=== PATIENT | female | born 1950 | race Caucasian/White ===

== ENCOUNTER 2024-06-12 23:10 | Observation (INO) | payer OTHER, SELFPAY ==
[2024-06-12] VITALS (10 sets, daily range): BP systolic 161–184; BP diastolic 76–96; PULSE 58; BMI 22.3
[2024-06-12 16:25] LABS: % Basophils 0.6 % (0-2); % Eosinophils 2.9 % (0-6); % Immature Granulocytes 0.5 % (0-0.5); % Lymphocytes 36.9 % (20.5-51.1); % Monocytes 5.3 % (1.7-9.3); % Neutrophils 53.8 % (42.2-75.2); Absolute Eosinophils 0.2 10^3/uL (0-0.7); Absolute Lymphocytes 2.4 10^3/uL (1.2-3.4); Absolute Monocytes 0.4 10^3/uL (0.1-0.6); Absolute Neutrophils 3.6 10^3/uL (1.4-6.5); Hematocrit 35.7 % (37.0-47.0); Hemoglobin 12.1 g/dL (12.0-16.0); Mean Corp Hgb Conc. 33.9 g/dL (33.0-37.0); Mean Corpuscular Volume 88.6 fL (81.0-99.0); Mean Platelet Volume 10.7 fL (7.4-10.4); Nucleated Red Blood Cells % 0 %; Platelet Count 192 10^3/uL (130-400); Red Blood Cell Count 4.03 10^6/uL (4.20-5.40); Red Cell Dist. Width 14.3 % (11.5-14.5); White Blood Cell Count 6.6 10^3/uL (4.8-10.8)
[2024-06-12 16:37] LABS: ALT (SGPT) 16 U/L (0-35); AST (SGOT) 24 U/L (14-36); Albumin 4.1 g/dl (3.5-5.0); Alkaline Phosphatase 57 U/L (38-126); Blood Urea Nitrogen 8 mg/dl (7-17); Calcium 8.9 mg/dl (8.4-10.2); Carbon Dioxide 28 mmol/L (22-30); Chloride 101 mmol/L (98-107); Glucose 102 mg/dl (70-99); Potassium 3.4 mmol/L (3.5-5.1); Sodium 140 mmol/L (135-145); Total Bilirubin 0.8 mg/dl (0.2-1.3); Total Protein 6.4 g/dl (6.3-8.2); eGFR > 60.00
[2024-06-12 16:49] LABS: Troponin I < 0.012 ng/ml
--- NOTE | 2024-06-12 22:17 | ED.GENMED ---
History of Present Illness
General
Chief Complaint: Dizziness
Source: patient
Exam Limitations: none
Time Seen by Provider: 06/12/24 19:37
History of Present Illness
History of Present Illness:
This is a 73 year old female that comes in with c/o dizziness. States that when she got up this morning she felt fine. Then she went back to bed and when she got up around 11am she got up and fell back down. State that she tried to get up again and
she took 3 steps and almost fell again as she grabbed onto something to prevent herself from falling. States that she was very dizzy. States that she felt a little better at this time but still was dizzy. Denies any fever, chills, chest pain, SOB,
abd pain, nausea, vomiting, diarrhea, headache, urinary burning.
Past History
Past History
ED Past Medical History: HTN, Hypercholesterolemia, Hypothyroidism and Other (Tumor of the Pituitary)
ED Past Surgical History: Appendectomy, Brain (pituitary tumor resection), Cholecystectomy, Gynecological (OOphorectomy), Tonsilectomy and Other (rhinoplasty, Cataracts)
Social History
Tobacco: Former smoker
Alcohol: Occasional ('bourbon and water every day')
Drug: None
Personal:
Living: alone
Review of Systems
Review of Systems
All Other Systems: ROS reviewed and negative except as documented in HPI and ROS
Constitutional: Reports no symptoms; Denies fever or chills
EENT: Reports no symptoms
Respiratory: Reports no symptoms; Denies cough or trouble breathing
Cardiac: Reports no symptoms; Denies chest pain
ABD/GI: Reports no symptoms; Denies abdominal pain, nausea, vomiting or diarrhea
: Reports no symptoms; Denies dysuria, frequency or urgency
Musculoskeletal: Reports no symptoms
Skin: Reports no symptoms
Neurological: Reports dizzy; Denies headache
Psychiatric: Reports no symptoms
Phy Exam
General Physical Exam
General Presentation: no apparent distress
General age: appears stated age
General Skin: warm and dry
General Habitus: elderly
General Mental: alert
General Hydration: appears well hydrated
ENT Exam
ENT Exam: TM's normal, pharynx normal and neck supple
Eye Exam
Eye Exam: EOMI
Cardiovascular Exam
Cardiovascular Exam: regular rate/rhythm, no edema, no murmur and normal peripheral pulses
Pulmonary Exam
Pulmonary Exam: lungs clear, no respiratory distress, no rales, chest non tender, no crackles, no rhonchi, no wheezing and no cough
Gastrointestinal Exam
Gastrointestinal Exam: normal bowel sounds, non tender, soft, no organomegaly, no pulsatile mass and non distended
NIH Stroke Score
Level of Consciousness: 0 - Alert
LOC questions: 0-Answers both correctly
LOC Commands: 0-Performs both correctly
Best Gaze: 0-Normal
Visual Mccabe: 0=Normal, no visual loss
Facial palsy: 0=Normal, symmetrical
Motor - Right Arm: 0=No drift 10 seconds
Motor - Left Arm: 0=No drift 10 seconds
Motor - Right Le-No drift 5 seconds
Motor - Left Le-No drift 5 seconds
Limb Ataxia: 0-Absent
Sensation: 0-Normal
Best Language: 0-No aphasia
Dysarthria: 0-Normal
Extinction and Inattention: 0-No abnormality
Total Score:: 0
Musculoskeletal Exam
Musculoskeletal Exam: full ROM, no edema and other (Hand grasp and push pulls equal)
Skin Exam
Skin Exam: normal color, warm/dry, no rash and no petechia
Psychiatric Exam
Psychiatric Exam: normal mood/affect
Course
Orders/Labs/Results
Orders:
Orders
06/12/24 Dinner
Regular
At Your Request: Full Participation
06/12/24 16:14
Electrocardiogram (*1) Urgent
Reason for Study: Vertigo / Dizzy
CT Head W/o Iv Contrast Urgent
Comment:
Reason For Exam: dizziness
EKG- Treatment ONCE
06/12/24 16:17
Complete Blood Count/With Diff Urgent
Comprehensive Metabolic Panel Urgent
Troponin I Urgent
06/12/24 22:50
Admit/Transfer Patient As Directed
Co-Sign Provider:
Level of Care: Observation services
Assign to:: Telemetry
Physician / Group: marci
Diagnosis: dizziness
Reason for Telemetry: Arrhythmia
Date to Stop Telemetry: 06/15/24
Time to Stop Telemetry: 11:00
Code Status As Directed
Resuscitation Status: Full Code
PRN Pain Medication Management As Directed
May give lesser potent ordered pain med per pt: Yes
preference::
Protocol:: Medication orders for pain may be administered in a
manner that supports deferring to patient preference
when the pt is:
- Requesting an ordered lesser potent pain medication.
Least to most potent pain medications are defined
as: acetaminophen < NSAID < tramadol < opioids
(morphine, oxycodone, hydromorphone).
- Requesting a lesser dose of the same medication IF
ORDERED.
- Requesting a less intrusive route of administration
if both routes are prescribed by the provider (PO <
IV).
06/12/24 22:58
Orthostatic Vital Signs As Directed
Orthostatic VS Frequency: Now
06/12/24 22:59
Potassium Chloride [KCl] 40 meq PO NOW STA
06/12/24 23:17
Urinalysis Reflex To Culture Urgent
Date Specimen was Collected: 06/12/24
Time Specimen was Collected: 23:15
06/12/24 23:38
Acetaminophen [Tylenol] 650 mg PO Q4HPRN PRN
06/12/24 23:38
Activity As Directed
Activity Level: As Tolerated
Pneumatic Compression Sleeves As Directed
Type: Knee high
Vital Signs As Directed
Frequency: Per unit guidelines
DX Deep Vein Thrombosis Video Routine
06/13/24 06:00
Complete Blood Count/With Diff IN AM
Comprehensive Metabolic Panel IN AM
Levothyroxine [Synthroid] 125 mcg PO DAILY @ 0600
06/13/24 18:00
Atorvastatin [Lipitor] 10 mg PO QPM
Calcium Carbonate [Oscal [place] 500] 500 mg PO QPM
Cholecalciferol (Vitamin D3) [VITAMIN D3 (cholecalciferol)] 25 mcg PO QPM
Clopidogrel Bisulfate [Plavix] 75 mg PO QPM
Losartan [Cozaar] 100 mg PO QPM
Multivitamin [Theragran] 1 tablet PO QPM
biotin 1 mg PO QPM
glucosamine sulfate [Glucosamine] 500 mg PO QPM
06/15/24 11:00
DC Protocol for Telemetry ONCE
Abnormal Lab Results
06/12/24
16:17
RBC 4.03 L 10^6/uL
(4.20-5.40)
Hct 35.7 L %
(37.0-47.0)
MPV 10.7 H fL
(7.4-10.4)
Potassium 3.4 L mmol/L
(3.5-5.1)
Glucose 102 H mg/dl
(70-99)
06/12/24 16:17
06/12/24 16:17
Glucose nonfasting. Troponin <0.012, Urine negative for infection
Vital Signs
Initial and Last Documented VS:
Initial Vital Signs
Temp Pulse Resp BP Pulse Ox
97.5 F 55 20 172/90 98
06/12/24 16:11 06/12/24 16:11 06/12/24 16:11 06/12/24 16:11 06/12/24 16:11
Last Documented Vital Signs
Temp Pulse Resp BP Pulse Ox
97.2 F 56 17 166/96 97
06/12/24 18:17 06/12/24 18:17 06/12/24 18:17 06/12/24 23:08 06/12/24 23:08
MDM/Problems Addressed
Differential Diagnosis Includes:
CVA,
MDM/Problems Addressed:
This is a 73 year old female that come in with c/o dizziness. States that she got up today and fell back down. States that she tried to get up again and took 3 steps and almost fell again but caught herself. States that she was some better when she
was laying in bed.
Will check labs CT head. Patient had not eaten so will give food and water and then recheck.
Back into see patient. States again that she is fine when laying in bed. Got patient up and patient was unsteady on her feet. Will admit for possible MRI in Morning. Hospitalist notified.
Chronic conditions affecting care:
CVA
Acute Exacerbation and/or Progression of Chronic Illness:
NA
*Radiology
Radiology exam reviewed: radiology read reviewed (CT head-Moderate diffuse cortical and cerebellar atrophy. Probably old lacunar infarcts in the head of the caudate, anterior limb of the internal capsule and the anterior aspect of the lentiform
nucleus on the right. Small old lacunar in the head of the caudate on the left. )
*Pulse Oximetry
Patient hypoxic: no
*EKG
Interpreted by ED Provider?: Yes
Heart Rate: 52
Rate: bradycardiac
Rhythm: sinus
[place]: left axis deviation
Interval: normal interval
QRS Pattern: normal QRS
Ischemia: no ischemia
*Assistant Editor Interpretation
Rate: Assistant Editor- N/A
*Critical Care Note
Total Time (30-74mins, 75-104mins- exclusive of procedures): Not Applicable
ED Attending Note
-
Portions of this chart may have been created with voice recognition software.� Occasional wrong word or��sound alike� substitutions may have occurred due to the inherent limitations of voice recognition software.
Discharge Plan
Departure
Patient Disposition: Admit
Date of Disposition: 06/12/24
Time of Disposition: 22:35
Admit to: Med/Surg
Presentation/result/management discussed w/ accepting MD/DO: Hospitalist
Patient with high blood pressure during this ER visit?: Yes
Condition: Good
Covid-19: Not Applicable
Discharge Problem:
Dizziness
Interventions
Interventions:
*Risk Screen - Suicide Last Done: 06/12/24 19:39
*General Assessment Last Done: 06/12/24 16:11
*Neglect/Abuse Screening Last Done: 06/12/24 19:39
ED- Fall Risk Assessment Last Done: 06/12/24 19:39
*ED COVID-19 Vaccine History Last Done: 06/12/24 19:39
ED- Neurological Assessment Last Done: 06/12/24 19:39
ED Swallowing Screen Last Done: 06/12/24 19:39
--- NOTE | 2024-06-12 22:52 | HPS.HSE ---
Family Physician
-
Family Physician: * NONE
Chief Complaint
-
dizziness
History of Present Illness
73-year-old female past medical history of hypertension, hypercholesteremia, hypothyroidism presenting with dizziness. When she woke up at 9 AM she felt fine. She went back to bed and when she got up at 11 AM she got up and felt very dizzy. She
felt off balance. When she took a few steps she almost fell and grabbed onto something to prevent her from falling. She denies symptoms when she is lying down. She denies any headache, blurry vision, difficulty speaking or swallowing, numbness or
tingling, focal weakness, nausea or vomiting, diarrhea, urinary symptoms.
She denies any cardiac history. Denies any recent changes to her medications. She denies checking her blood pressure on a regular basis
She denies smoking or alcohol use.
Medical History
Past Medical History
Past Medical History: Reports Other (hypertension, hypercholesteremia, hypothyroidism )
Past Surgical History: Reports Other ( Appendectomy, Brain (pituitary tumor resection), Cholecystectomy, Gynecological (OOphorectomy), Tonsilectomy and Other (rhinoplasty, Cataracts))
Social History
Tobacco: Non-smoker
Alcohol: None
Drug: None
Family History
Family History: Not pertinent
Allergies / Home Medications
Allergies reflects when Allergies were last updated in [facility].
Home Medications with original date entered in [facility]
Allergy/Medication List:
Allergies
Allergy/AdvReac Type Severity Reaction Status Date / Time
Penicillins Allergy Rash Verified 06/12/24 16:11
Home Medications
calcium carbonate 500 mg PO QPM 11/03/17
losartan 100 mg tablet 100 mg PO QPM ##0 11/03/17
multivitamin with folic acid 400 mcg tablet ([place]) 1 tab PO QPM 11/03/17
levothyroxine 125 mcg tablet 125 mcg PO DAILY 02/09/22
acetaminophen 325 mg tablet 650 mg PO Q4HPRN PRN mild pain/temp greater than 100.4 F 06/12/24
biotin 1 mg tablet 1 mg PO QPM 06/12/24
cholecalciferol (vitamin D3) 25 mcg (1,000 unit) tablet 25 mcg PO QPM 06/12/24
clopidogrel 75 mg tablet 75 mg PO QPM 06/12/24
glucosamine sulfate 500 mg tablet (Glucosamine) 500 mg PO QPM 06/12/24
simvastatin 20 mg tablet 20 mg PO QPM 06/12/24
Review of Systems
-
History Source: Patient
A 12 point ROS was completed and negative except as noted: Yes
Constitutional: Reports No Symptoms
EENT: Reports No Symptoms
Respiratory: Reports No Symptoms
Cardiac: Reports No Symptoms
Abdomen/GI: Reports No Symptoms
: Reports No Symptoms
Musculoskeletal: Reports No Symptoms
Skin: Reports No Symptoms
Neurological: Reports No Symptoms
Endocrine: Reports No Symptoms
Hematologic/Lymphatic: Reports No Symptoms
Psych: Reports No Symptoms
Physical Exam
Vital Signs
Vital Signs
Temp Pulse Resp BP Pulse Ox
97.2 F 56 17 164/79 98
06/12/24 18:17 06/12/24 18:17 06/12/24 18:17 06/12/24 22:00 06/12/24 22:15
Physical Exam
General: Well Developed, Well Nourished and No Apparent Distress
HEENT: NormoCephalic, Moist mucous membranes and Atraumatic
Respiratory: Clear
Cardiac: S1/S2 and Regular Rhythm; No Murmur or Rub
GI: Soft, Non Tender, Non Distended and Normal Bowel Sounds; No Organomegaly
Rectal: Deferred by Provider
Musculoskeletal: No Clubbing, No Cyanosis and No Edema
Skin: No Rash
Neuro: Nonfocal/grossly intact
Laboratory Results
-
06/12/24 16:17
06/12/24 16:17
Laboratory Results
Total Bilirubin 0.8 mg/dl (0.2-1.3) 06/12/24 16:17
AST 24 U/L (14-36) 06/12/24 16:17
ALT 16 U/L (0-35) 06/12/24 16:17
Alkaline Phosphatase 57 U/L (38-126) 06/12/24 16:17
Troponin I < 0.012 ng/ml 06/12/24 16:17
Data Reviewed
-
Lab Data: Labs Reviewed by me
Old Records: Reviewed
Impression/Plan
-
IMPRESSION:
PLAN:
# Dizziness, strongly suggestive of orthostatic hypotension rather than CVA
-No vertigo
-No focal neurological symptoms deficits
-CT head showed moderate diffuse cortical and cerebellar atrophy, probably old lacunar infarct in the head of the caudate, anterior limb of the internal capsule and anterior aspect of the lentiform nucleus on the right small lacunar infarct in the
head of the cardia and the left
-Check orthostatic vital signs
-Consider MRI brain if orthostatics normal
# Hypertensive urgency
# History of hypertension
-Blood pressure 160s
-Continue losartan
-Allow for some permissive hypertension due to consideration of orthostatic hypotension
History of prior CVA
-Continue Plavix
History of pituitary tumor resection
Hypercholesteremia
-Continue statin
Hypothyroidism
-Continue levothyroxine
Full code
DVT prophylaxis�SCDs
Regular diet
[2024-06-12] MEDS: KCL 40 MEQ PO (23:08)
[2024-06-12 23:29] LABS: Urine Albumin Negative (Neg - Trace); Urine Bilirubin Negative (Negative); Urine Character Clear (Clear); Urine Color Yellow; Urine Glucose Negative (Negative); Urine Ketone Negative (Negative); Urine Leukocyte Negative (Negative); Urine Nitrite Negative (Negative); Urine Occult Blood Negative (Negative); Urine Urobilinogen Negative (Neg - 1+)
[2024-06-12] MEDS: FLUSH (NSS) 1 FLUSH IV (23:54)
[2024-06-13] VITALS (17 sets, daily range): BP systolic 128–179; BP diastolic 69–145; BMI 22.8
[2024-06-13 05:54] LABS: % Basophils 0.8 % (0-2); % Eosinophils 2.5 % (0-6); % Immature Granulocytes 0.3 % (0-0.5); % Lymphocytes 31.1 % (20.5-51.1); % Neutrophils 59.3 % (42.2-75.2); Absolute Basophils 0.1 10^3/uL (0-0.2); Absolute Eosinophils 0.2 10^3/uL (0-0.7); Absolute Lymphocytes 2.3 10^3/uL (1.2-3.4); Absolute Monocytes 0.4 10^3/uL (0.1-0.6); Absolute Neutrophils 4.3 10^3/uL (1.4-6.5); Hematocrit 34.6 % (37.0-47.0); Hemoglobin 11.4 g/dL (12.0-16.0); Mean Corp Hgb Conc. 32.9 g/dL (33.0-37.0); Mean Corpuscular Hgb 28.4 pg (27.0-31.0); Mean Corpuscular Volume 86.1 fL (81.0-99.0); Mean Platelet Volume 10.8 fL (7.4-10.4); Nucleated Red Blood Cells % 0 %; Platelet Count 199 10^3/uL (130-400); Red Blood Cell Count 4.02 10^6/uL (4.20-5.40); Red Cell Dist. Width 14.1 % (11.5-14.5); White Blood Cell Count 7.3 10^3/uL (4.8-10.8)
[2024-06-13 06:44] LABS: ALT (SGPT) 15 U/L (0-35); AST (SGOT) 24 U/L (14-36); Albumin 3.9 g/dl (3.5-5.0); Alkaline Phosphatase 50 U/L (38-126); Blood Urea Nitrogen 10 mg/dl (7-17); Calcium 8.8 mg/dl (8.4-10.2); Carbon Dioxide 27 mmol/L (22-30); Chloride 103 mmol/L (98-107); Estimated Creatinine Clearance 49 ml/min; Glucose 109 mg/dl (70-99); Potassium 4.4 mmol/L (3.5-5.1); Sodium 138 mmol/L (135-145); Total Bilirubin 0.8 mg/dl (0.2-1.3); Total Protein 6.2 g/dl (6.3-8.2); eGFR > 60.00
[2024-06-13] MEDS: SYNTHROID 125 MCG PO (06:44)
--- NOTE | 2024-06-13 11:48 | W.PN.HOSP.TC ---
Addendum entered and electronically signed by Chandra Sexton MD 06/13/24 15:14:
Seen and examined. States that she is feeling better. No further episodes of lightheadedness. Tells me that she woke up yesterday in the morning and then went back to sleep. When she woke up again she started feeling lightheaded and needed to
use her surrounding to hold herself up. She denied tinnitus blurry vision loss of hearing runny nose congestion sore throat chest pain shortness of breath palpitations fever dysuria.
Orthostatics assessed in the ER negative. CBC with normocytic anemia. Unremarkable BMP. Head CT with moderate diffuse cortical and cerebellar atrophy. Probably old lacunar infarcts in the head of the caudate anterior limb internal capsule and
anterior aspect of the lentiform nucleus on the right. Small old lacunar infarct in the head of the capitate on the left. EKG sinus rhythm with first-degree AV block.
Dizziness described as lightheadedness with hx of bradycardia and cva.
-Will r/o cva by checking MRI brain
-Will r/o carotid stenosis by check carotid ultrasound
-Orthostatics negative
-Check 2d echo as ekg demonstating first degree AV block al beit not new
-Tele monitor
-PT for vestibular rehab
-Per daughter has a poor diet, therefore, cannot exclude dehydration/poor po intake as a contributing factor
Normocytic anemia
-Will check fecal occult
-Unclear as to when last C-scope was, daughter has requested this study.
-Otherwise outpatient Iron panel/ferritin and age appropriate malignancy screening
Spoke with her daughter Dr. Voss who is an [employer] in [place]. Updated provided.
-Annemarie Voss [phone]
Original Note:
Today's Communication/Plan
-
Carotid ultrasound
MRI brain
Echo
PT vestibular evaluation
Assessment / Plan
Assessment / Plan
IMPRESSION: 73 F with history of hypertension, hypercholesterolemia, hypothyroidism, CVA, who presented to the ED with dizziness.
PLAN:
Dizziness:
Possibly related to elevated blood pressure. Complains of lightheadedness and unsteadiness. No vertigo. No focal neurological symptoms deficits. Normal orthostatic vitals
CT head showed moderate diffuse cortical and cerebellar atrophy, probably old lacunar infarct in the head of the caudate, anterior limb of the internal capsule and anterior aspect of the lentiform nucleus on the right small lacunar infarct in the
head of the cardia and the left
-Will get carotid US, MRI brain and Echo
-PT for vestibular eval
Hypertensive urgency:
Systolic blood pressure up to 180s. Known history of hypertension
- Now stable.
- Continue losartan
History of prior CVA
-Continue Plavix
History of pituitary tumor resection
Hypercholesteremia
-Continue statin
Hypothyroidism
-Continue levothyroxine
Full code
DVT prophylaxis�SCDs
Regular diet
Anticipated Discharge: Within 24 hours
Subjective/Interval History
-
Date of Service: June 13, 2024
No acute events overnight. Patient states symptoms have resolved
Objective Data
-
Labs:
Laboratory Results
06/13/24
05:38
WBC 7.3
Hgb 11.4 L
Hct 34.6 L
Plt Count 199
Sodium 138
Potassium 4.4 D
Chloride 103
Carbon Dioxide 27
BUN 10
Creatinine 0.9
Glucose 109 H
Calcium 8.8
Total Bilirubin 0.8
AST 24
ALT 15
Alkaline Phosphatase 50
Vital Signs:
Vital Signs
Temp Pulse Resp BP Pulse Ox
97.2 F 50 18 155/70 96
06/12/24 18:17 06/13/24 02:02 06/13/24 02:02 06/13/24 10:00 06/13/24 10:45
Review of Systems
-
History Source: Patient
Constitutional: Denies Fever or Fatigue
Respiratory: Reports Cough; Denies Trouble Breathing
Cardiac: Denies Chest Pain, Diaphoresis or Palpitations
Abdomen/GI: Denies Abdominal Pain, Nausea or Vomiting
Genitourinary: Denies Dysuria, Difficulty Voiding or Bleeding
Neuro: Denies Dizzy, Headache, Weakness, Numbness or Lightheadedness
Physical Exam
-
General: No Apparent Distress and Comfortable
HEENT: Normocephalic, Atraumatic, Moist Mucous Membranes and PERRLA
Respiratory: Clear to Auscultation and Non Labored Respirations; Negative Wheezes, Rales, Rhonchi or Crackles
Cardiac: Regular Rhythm and S1/S2; Negative Murmur, Rub, Calf Tenderness or Susie's Sign
GI: Soft, Nontender, Nondistended and Normal Bowel Sounds
Genito-urinary: No Costovertebral Tender
Musculoskeletal: No Cyanosis and No Edema
Skin: Warm and Dry
Neuro: Awake, Alert, No Motor Deficits, Nonfocal/Grossly Intact, No Sensory Deficits and Other (EOMI); Negative Slurred Speech or Facial Droop
Psych: Calm
[2024-06-13] MEDS: VITAMIN D3 (cholecalciferol) 25 MCG PO (19:20)
[2024-06-13] MEDS: THERAGRAN 1 TABLET PO (19:20)
[2024-06-13] MEDS: LIPITOR 10 MG PO (19:20)
[2024-06-13] MEDS: COZAAR 100 MG PO (19:20)
[2024-06-13] MEDS: PLAVIX 75 MG PO (19:20)
[2024-06-13] MEDS: OSCAL CAL 500 500 MG PO (19:20)
[2024-06-14 00:29] VITALS: BP 160/72
[2024-06-14 03:05] VITALS: BP 160/94
[2024-06-14 03:58] VITALS: BP 158/87
[2024-06-14] MEDS: SYNTHROID 125 MCG PO (06:16)
[2024-06-14 06:24] LABS: Hematocrit 33.9 % (37.0-47.0); Hemoglobin 11.8 g/dL (12.0-16.0); Mean Corp Hgb Conc. 34.8 g/dL (33.0-37.0); Mean Corpuscular Hgb 30.1 pg (27.0-31.0); Mean Corpuscular Volume 86.5 fL (81.0-99.0); Mean Platelet Volume 10.8 fL (7.4-10.4); Platelet Count 201 10^3/uL (130-400); Red Blood Cell Count 3.92 10^6/uL (4.20-5.40); Red Cell Dist. Width 13.9 % (11.5-14.5); White Blood Cell Count 7.7 10^3/uL (4.8-10.8)
[2024-06-14 06:58] LABS: Blood Urea Nitrogen 12 mg/dl (7-17); Calcium 9.2 mg/dl (8.4-10.2); Carbon Dioxide 27 mmol/L (22-30); Chloride 98 mmol/L (98-107); Estimated Creatinine Clearance 55 ml/min; Glucose 117 mg/dl (70-99); Potassium 4.3 mmol/L (3.5-5.1); Sodium 135 mmol/L (135-145); eGFR > 60.00
[2024-06-14 07:48] VITALS: BP 157/84
[2024-06-14 11:23] VITALS: BP 160/88
--- NOTE | 2024-06-14 14:03 | W.PN.HOSP.TC ---
Addendum entered and electronically signed by Chandra Sexton MD 06/14/24 14:26:
I personally reviewed MRI 2D echo carotid ultrasound and laboratory results along with vitals. At this time we will plan to discharge home with outpatient vestibular rehab as physical therapy noted vestibular hypofunction. Therefore we will
provide her with a prescription.
I spoke with her daughter on the side outside of her room after obtaining consent from Ms. Urbina as I was able to do this. She was agreeable. I asked her to if there is any history of depression. She states there was she was previously on
Wellbutrin however not sure why it was not continued especially after she was switched to a different PCP. She states that her house for which she saw yesterday was very dirty. She or her mom's mental status started declining after her father had
. She states that she is offered to bring her mom to [place] but refuses. I proceeded to go back into her room and I personally spoke to her about moving near to her daughter in [place]. She seems more agreeable to this now
as she states that she is going to have to consider this. I also told her she would be closer to her grandchildren she further stated that 1 grandchild is in [place] other 1 is in [place]. I sat stated they are more likely to go to [place] and then they are likely to come see you. She agreed with that. She will take moving to [place] in 2 consideration.
More than 30 minutes spent in discharge including
Final examination of the patient
Summarizing hospital stay
Instructions for continuing care to all relevant caregivers
Preparation of discharge records, prescriptions, and referral forms
Total time spent (in minutes): 32mins
Original Note:
Today's Communication/Plan
-
DC planning
Assessment / Plan
Assessment / Plan
IMPRESSION: 73 F with history of hypertension, hypercholesterolemia, hypothyroidism, CVA, who presented to the ED with dizziness.
PLAN:
Dizziness:
Possibly related to elevated blood pressure. Complains of lightheadedness and unsteadiness. No vertigo. No focal neurological symptoms deficits. Normal orthostatic vitals
CT head showed moderate diffuse cortical and cerebellar atrophy, probably old lacunar infarct in the head of the caudate, anterior limb of the internal capsule and anterior aspect of the lentiform nucleus on the right small lacunar infarct in the
head of the cardia and the left
-Will get carotid US with <50% stenosis bilaterally. MRI without acute infarcts. Echo unremarkable with EF 60-65%
-PT evaluation - likely vestibular hypofunction. F/U with physical therapy outpatient
-PCP follow up.
Hypertensive urgency:
Systolic blood pressure up to 180s. Known history of hypertension
- Now stable.
- Continue losartan
Normocytic anemia:
Mild. Pt has never had a colonoscopy. Denies bloody/black stool. Remote history of normal cologuard. Due for colon cancer screening
- FOBT when able to provide stool
- PCP f/u for normocytic anemia
History of prior CVA
-Continue Plavix
History of pituitary tumor resection
Hypercholesteremia
-Continue statin
Hypothyroidism
-Continue levothyroxine
Full code
DVT prophylaxis�SCDs
Regular diet
Anticipated Discharge: Today
Subjective/Interval History
-
Date of Service: June 14, 2024
No recurrence of symptoms
Objective Data
-
Labs:
Laboratory Results
06/14/24
05:45
WBC 7.7
Hgb 11.8 L
Hct 33.9 L
Plt Count 201
Sodium 135
Potassium 4.3
Chloride 98
Carbon Dioxide 27
BUN 12
Creatinine 0.8
Glucose 117 H
Calcium 9.2
Vital Signs:
Vital Signs
Temp Pulse Resp BP Pulse Ox
98.4 F 52 17 160/88 96
06/14/24 11:23 06/14/24 11:23 06/14/24 11:23 06/14/24 11:23 06/14/24 11:23
I&O
06/13/24 06/14/24 06/15/24
06:59 06:59 06:59
Intake Total 720 / 720
Balance 720 / 720
Review of Systems
-
History Source: Patient
Constitutional: Denies Fever or Chills
EENT: Denies Blurry Vision
Respiratory: Denies Trouble Breathing
Cardiac: Denies Chest Pain or Palpitations
Abdomen/GI: Denies Abdominal Pain, Nausea or Vomiting
Genitourinary: Denies Dysuria, Difficulty Voiding or Bleeding
Neuro: Denies Dizzy, Headache, Weakness or Numbness
Physical Exam
-
General: No Apparent Distress and Comfortable
HEENT: Normocephalic and Moist Mucous Membranes
Respiratory: Clear to Auscultation and Non Labored Respirations; Negative Wheezes, Rales, Rhonchi or Crackles
Cardiac: Regular Rhythm and S1/S2; Negative Murmur, Rub or Calf Tenderness
GI: Soft, Nontender, Nondistended and Normal Bowel Sounds
Genito-urinary: No Costovertebral Tender
Musculoskeletal: No Clubbing, No Cyanosis and No Edema
Skin: Warm and Dry
Neuro: Awake, Alert, Oriented, No Motor Deficits and Nonfocal/Grossly Intact
Psych: Calm
--- NOTE | 2024-06-14 14:27 | W.DCSUMMARY ---
Discharge Summary
Discharge Data
Date of Admission: 06/12/24
Date of Discharge: 06/14/24
-
Pending Results: No
Hospital Course
Discharging Physician : Chandra Sexton MD; Shiloh Adrian MD.
Disposition : Home
Principal Discharge diagnosis : Dizziness, hypertensive urgency, normocytic anemia
Chronic Discharge diagnosis : Hypertension, Hx of CVA, Hx of posterior tumor resection, hypercholesterolemia, hypothyroidism
Hospital Course :
73-year-old female with above past medical history who presented to ED with dizziness on 06/12. On arrival to the ED, symptoms were present but improved, she was afebrile, mildly bradycardic, hypertensive, non-hypoxic with mild hypokalemia.
CT head with no acute intracranial process, EKG with sinus bradycardia with left axis deviation. Troponin was normal. Urine negative for UTI. She was non-orthostatic per orthostatic vitals. CBC with mild normocytic anemia. She was found to be mildly
hypokalemic which was quickly repleted. Carotid US without significant carotid disease. Brain MRI with chronic changes but negative for acute infarct.
Home medications for chronic medical conditions were continued throughout stay. Patient's symptoms resolved. Physical therapy evaluation for vestibular function suggests symptoms were likely related to vestibular hypofunction.
Daughter was updated with treatment plans/care. She remained stable throughout stay and was evaluated to be stable for discharge to home with recommendations for:
- PCP follow up for evaluation of anemia (FOBT unable to be completed during stay), preventive care, hypertension, colon cancer screening.
- Outpatient vestibular physical therapy evaluation and treatment
Important imaging findings :
Carotid US 06/13: Small amount of calcified plaque is identified in the left internal carotid artery. Carotid velocity measurements bilaterally are consistent with less than 50% internal carotid artery stenosis. Vertebral artery flow is antegrade
bilaterally.
Echocardiogram 06/13: Normal biventricular size and systolic function without regional wall motion abnormality. Trace aortic regurgitation. Normal left ventricular size and systolic function. Mild concentric left ventricular hypertrophy. No regional
wall motion abnormalities are seen. LV ejection fraction is 60-65% by visual assessment. Normal diastolic function.
Brain MRI 06/13:
1. No MRI evidence for acute infarct.
2. Multiple chronic infarcts in the julianne with associated encephalomalacia.
3. Multiple chronic dilated perivascular spaces or lacunar infarcts in the caudate nuclei and basal ganglia.
4. Small chronic periventricular infarct in the right frontal lobe.
5. Moderate white matter leukoaraiosis in the frontal and parietal lobes.
6. Mild diffuse cerebral and cerebellar volume loss.
7. Moderate discogenic degenerative disease at C3/C4 or with a small disc herniation causing mild spinal cord compression.
Discharge Plan
-
Patient Disposition: Home (Routine Discharge)
Discharge Diagnosis/Procedures: dizziness, vestibular hypofunction, anemia
Condition: Good
Diet: Low Cholesterol
Activity: No restrictions
Driving Restrictions: As prior to admission
Bathing Restrictions: None
Activity Restrictions/Additional Instructions:
You have a mild anemia. We were unable to get a stool sample and conduct a test for blood in your stool. Please see your primary care provider about potential causes of anemia. You are also due for colorectal cancer screening at this time. Your PCP
will help arrange preventive care tests/measures. Please call your PCP to schedule a visit shortly.
Your dizziness is likely caused by vestibular hypofunction (balance issues related to inner ear structures). Please followup with outpatient physical therapy. A script has been provided for you.
Instructions: Dizziness, BLOOD PRESSURE
Referrals:
NONE,* [Family Provider] -
Additional Discharge Medication Instructions: Outpatient Cardio follow up
Prescriptions:
Continued
losartan 100 mg Tablet
100 mg PO QPM Qty: 0
calcium carbonate 500 MG tablet
500 mg PO QPM
multivitamin with folic acid [Tab-A-Wesley] 1 TABLET tablet
1 tab PO QPM
levothyroxine 125 MCG tablet
125 mcg PO DAILY
glucosamine sulfate [Glucosamine] 500 mg Tablet
500 mg PO QPM
simvastatin 20 mg tablet
20 mg PO QPM
biotin 1 mg Tablet
1 mg PO QPM
cholecalciferol (vitamin D3) 25 mcg (1,000 unit) Tablet
25 mcg PO QPM
acetaminophen 325 MG tablet
650 mg PO Q4HPRN PRN (Reason: mild pain/temp greater than 100.4 F)
clopidogrel 75 MG tablet
75 mg PO QPM
Discharge Orders:
Discharge Patient (As Directed); Ordered 06/14/24
Ordered By: Shiloh Adrian
Discharge Date and Time
Print Language: K[place]ILI
[2024-06-14] MEDS: FLUAD (65 yr+) 2024-2025 FORMULA 0.5 ML IM (14:44)
--- NOTE | 2024-06-14 17:18 | CM ---
met with patient and her daughter cinthia.patient lives [place] in [facility] [place] with [address],her bed and bath is on the second level,she amb i and is I with her adl.she has nevr had a vn but was at [facility] in past.
PCP: dr alicia marcum Pharmacy: [facility] in [place]
patient is adm with dizziness.she will dc home today with op vestibular therapy.
== END 2024-06-14 15:02 | disposition home or self-care (01) ==
LOC: 3 WEST ACU 23:10
PROVIDERS: Clinical Nurse Specialist Family Health; Student in an Organized Health Care Education/Training Program; ADMITTING PHYSICIAN Hospitalist; ATTENDING PHYSICIAN Hospitalist; EMERGENCY PHYSICIAN Emergency Medicine
DX: R42 Dizziness and giddiness (principal); I16.0 Hypertensive urgency; D64.9 Anemia, unspecified; I11.9 Hypertensive heart disease without heart failure; E87.6 Hypokalemia; G31.9 Degenerative disease of nervous system, unspecified; R00.1 Bradycardia, unspecified; G93.89 Other specified disorders of brain; I67.81 Acute cerebrovascular insufficiency; M50.01 Cervical disc disorder with myelopathy, high cervical region; M50.31 Other cervical disc degeneration, high cervical region; I44.0 Atrioventricular block, first degree; E78.00 Pure hypercholesterolemia, unspecified; E03.9 Hypothyroidism, unspecified; Z60.2 Problems related to living alone; Z90.721 Acquired absence of ovaries, unilateral; Z90.49 Acquired absence of other specified parts of digestive tract; Z88.0 Allergy status to penicillin; Z79.890 Hormone replacement therapy; Z79.02 Long term (current) use of antithrombotics/antiplatelets; Z86.73 Personal history of transient ischemic attack (TIA), and cerebral infarction without residual deficits; Z23 Encounter for immunization
CPT/HCPCS: 70450; 70551; 80048; 80053; 81003; 84484; 85025; 85027; 90662; 93005; 93306; 93880; 97161; 99285; G0008; G0378

== ENCOUNTER 2024-07-03 10:23 | Outpatient (RCR) | payer OTHER, SELFPAY | END 2024-07-04 06:53 | disposition home or self-care (01) | LOC: RPT 10:23 | PROVIDERS: ATTENDING PHYSICIAN Family Medicine | DX: R42 Dizziness and giddiness (principal); Z73.6 Limitation of activities due to disability | CPT/HCPCS: 97162 ==

== ENCOUNTER → 2024-07-10 12:10 | Outpatient (REF) | payer OTHER, SELFPAY | LOC: RCS 12:10 | PROVIDERS: ATTENDING PHYSICIAN Nurse Practitioner Primary Care; FAMILY PHYSICIAN Family Medicine | DX: Z86.73 Personal history of transient ischemic attack (TIA), and cerebral infarction without residual deficits (principal); R00.1 Bradycardia, unspecified; R42 Dizziness and giddiness | CPT/HCPCS: 93225; 93226 ==

== ENCOUNTER → 2025-05-20 10:51 | Outpatient (REF) | payer OTHER, SELFPAY | LOC: WDC 10:51 | PROVIDERS: ATTENDING PHYSICIAN Family Medicine | DX: Z13.820 Encounter for screening for osteoporosis (principal); Z12.31 Encounter for screening mammogram for malignant neoplasm of breast | CPT/HCPCS: 77063; 77067; 77080 ==

== ENCOUNTER → 2025-07-25 11:37 | Outpatient (REF) | payer OTHER, SELFPAY | LOC: REG 11:37 | PROVIDERS: ATTENDING PHYSICIAN Family Medicine | DX: R00.1 Bradycardia, unspecified (principal) | CPT/HCPCS: 93005 ==